=== PATIENT | male | born 1955 | race Caucasian/White ===

== ENCOUNTER 2017-01-29 04:12 | Emergency (ER) | payer MEDICARE, OTHER ==
[~2017-01-29] VITALS: Ht 165.1 cm; Wt 75.0 kg
[~2017-01-29 04:12] MED LIST: ACCUPRIL5 MG; AMLODIPINE5 MG PO; ASPIRIN EC325 MG; ASPIRIN EC325 MG PO; ASPIRIN EC81 MG PO; ASPIRIN81 MG OR; CORTISPORIN OTI10 ML AD; CRANBERRY1 TAB PO; DIGITEK0.25 MG PO; ERYTHROMYCIN BAS1 GM OP; FLEXERIL5 MG PO; FLOMAX0.4 M1 PO; LIPITOR20 MG PO; LOPRESSOR25 M1 PO; LORTAB 5 OR; LORTAB 5/3255 MG PO; LOSARTAN POT50 MG PO; MELOXICAM7.5 MG PO; METFORMIN HCL500 M2 PO; METOPROL TAR50 MG PO; METOPROLOL TART50 MG PO; METOPROLOL50 MG PO; MORPHINE SUL30 M3 OR; MORPHINE SUL30 MG OR; NORCO1 TA1 PO; PRAVACHOL20 MG PO; VITAMIN B-12500 MC2; VITAMIN B-625 MG; VITAMIN D400 UNI2 PO
[2017-01-29] MEDS ORDERED: PRAVASTATIN SOD20 MG PO (04:47)
[2017-01-29] MEDS ORDERED: TAMSULOSIN0.4 MG PO (04:49)
[2017-01-29 06:35] LABS: HEMATOCRIT 38.1 % (39.0-50.0); HEMOGLOBIN 13.6 g/dl (14.0-18.0); IMMATURE GRANULOCYTES 0.6 % (0.0-1.0); MEAN CELL VOLUME 89.9 fL CALC (80.0-100.0); MEAN CORPUSCULAR HGB 32.1 pG CALC (26.0-32.0); MEAN CORPUSCULAR HGB CONC 35.7 g/L CALC (32.0-36.0); NEUT# 8.33 thou/uL (1.82-7.42); RED BLOOD COUNT 4.24 mill/uL (4.70-6.10); RED CELL DISTRI WIDTH 12.9 % (11.5-15.5)
[2017-01-29 06:52] LABS: ACT PARTIAL THROMBO TIME 24.5 SECONDS (20.0-32.5); INTERNATIONAL NORMALIZED RATIO 0.9 RATIO (0.7-1.3); PROTHROMBIN TIME 9.8 SECONDS (9.0-12.5)
[2017-01-29 06:55] LABS: ALBUMIN 4.6 g/dL (3.2-5.0); ALKALINE PHOSPHATASE 65 u/l (38-126); ANION GAP 19 (6-22 (CALC)); BILIRUBIN, TOTAL 0.8 mg/dL (0.0-1.4); BUN 7 mg/dL (8-23); BUN/CREATININE RATIO 13 (12-20 (CALC)); CALCIUM 8.8 mg/dL (8.4-10.2); CARBON DIOXIDE 21 mmol/l (22-30); CHLORIDE 96 mmol/l (95-108); CREATININE 0.6 mg/dL (0.7-1.3); GFR > 60 ML/MIN (>=60 (CALC)); GFR FOR AFR.AMER. > 60 ML/MIN (>=60 (CALC)); GLUCOSE 79 mg/dL (82-115); POTASSIUM 4.8 mmol/l (3.5-5.1); SGOT/AST 50 u/l (19-48); SGPT/ALT 46 u/l (11-66); SODIUM 130 mmol/l (137-146); TOTAL PROTEIN 8.2 g/dL (6.3-8.2)
[2017-01-29 10:00] VITALS: BP 111/66
[2017-01-29 10:44] LABS: URINE BILIRUBIN - DIPSTICK NEGATIVE (NEGATIVE); URINE BLOOD DIPSTICK TRACE-INTACT (NEGATIVE); URINE CLARITY CLEAR; URINE COLOR YELLOW; URINE GLUCOSE - DIPSTICK NEGATIVE (NEGATIVE); URINE KETONE TRACE mg/dL (NEGATIVE); URINE LEUK ESTERASE NEGATIVE (NEGATIVE); URINE NITRITE - DIPSTICK NEGATIVE (Negative); URINE PROTEIN - DIPSTICK NEGATIVE (NEG-TRACE); URINE SPECIFIC GRAVITY <=1.005; URINE UROBILINOGEN - DIPSTICK 0.2 E.U./dL (0.2)
== END 2017-01-29 10:10 | disposition short-term general hospital (02) ==
LOC: ED 04:12
PROVIDERS: Emergency Medicine
PROC: 0T9B70Z Drainage of Bladder with Drainage Device, Via Natural or Artificial Opening (ICD-10-PCS; principal; 2017-01-29)
DX: S72.042A Displaced fracture of base of neck of left femur, initial encounter for closed fracture (principal); W01.0XXA Fall on same level from slipping, tripping and stumbling without subsequent striking against object, initial encounter; Y93.89 Activity, other specified; Y92.008 Other place in unspecified non-institutional (private) residence as the place of occurrence of the external cause; F17.210 Nicotine dependence, cigarettes, uncomplicated; I48.91 Unspecified atrial fibrillation

== ENCOUNTER 2019-02-05 06:43 | Day surgery (SDC) | payer MEDICARE, OTHER ==
[~2019-02-05] VITALS: Ht 165.1 cm; Wt 79.4 kg
[~2019-02-05 06:43] MED LIST changes: +B121000 MCG; +METOPROL TAR25 MG PO; +PRAVASTATIN SOD20 MG PO; +TAMSULOSIN0.4 MG PO; +VITAMIN C1000 MG PO
[2019-02-05 09:14] VITALS: BP 169/84
== END 2019-02-05 09:54 | disposition home or self-care (01) ==
LOC: ENDO 06:43 → ORM 08:35 → ENDO 08:35 → ORM 10:15
PROVIDERS: ATTEND Surgery
PROC: 0DJD8ZZ Inspection of Lower Intestinal Tract, Via Natural or Artificial Opening Endoscopic (ICD-10-PCS; principal; 2019-02-05)
DX: Z12.11 Encounter for screening for malignant neoplasm of colon (principal); K64.8 Other hemorrhoids; Z86.010 Personal history of colon polyps